=== PATIENT | male | born 1990 | race African-American/Black ===

== ENCOUNTER 2020-11-02 07:08 | Emergency (ER) | payer SELFPAY ==
[~2020-11-02] VITALS: Ht 170.2 cm; Wt 65.9 kg
[2020-11-02 07:16] VITALS: BP 140/81; TEMP 97.5
[2020-11-02] MEDS ORDERED: DOXYCYCLINE 10100 MG PO (08:02)
[2020-11-02] MEDS ORDERED: ZOVIRAX400 MG PO (08:02)
[2020-11-02 09:07] VITALS: PULSE 96
== END 2020-11-02 09:07 | disposition home or self-care (01) ==
LOC: COL.ER 07:08
DX: R21 Rash and other nonspecific skin eruption (principal)
CPT/HCPCS: J0696